=== PATIENT | male | born 1970 | race Caucasian/White ===

== ENCOUNTER → 2020-05-15 | Outpatient (CLI) | payer OTHER, SELFPAY ==
[2014-12-17 06:49] VITALS: BMI 23.6
[2020-05-15 10:37] LABS: Vitamin B12 570 pg/mL (211-911)
[2020-05-15 11:03] LABS: Ferritin 204 ng/mL (26-388); Iron 121 ug/dL (65-175)
== END | disposition home or self-care (01) ==
LOC: MFPLAB 09:15
PROVIDERS: PCP Family Medicine; Referring Provider Family Medicine; Visit Provider Family Medicine
DX: R71.8 Other abnormality of red blood cells (principal)
CPT/HCPCS: 36415; 82607; 82728; 82746; 83540

== ENCOUNTER → 2021-04-20 08:41 | Outpatient (CLI) | payer OTHER, SELFPAY ==
[2014-12-17 06:49] VITALS: BMI 23.6
[2021-04-20 10:32] LABS: PSA,Total - Annual Screen 1.01 ng/mL (0.00-4.00)
== END ==
PROVIDERS: PCP Family Medicine; Referring Provider Family Medicine; Visit Provider Family Medicine
DX: Z12.5 Encounter for screening for malignant neoplasm of prostate (principal)
CPT/HCPCS: 36415; 84153; G0103

== ENCOUNTER → 2022-04-23 | Outpatient (CLI) | payer OTHER, SELFPAY ==
[2022-04-23 08:51] LABS: PSA,Total - Annual Screen 0.93 ng/mL (0.00-4.00)
== END | disposition home or self-care (01) ==
PROVIDERS: PCP Family Medicine; Visit Provider Family Medicine
DX: Z12.5 Encounter for screening for malignant neoplasm of prostate (principal)
CPT/HCPCS: 36415; 84153; G0103

== ENCOUNTER → 2022-11-25 | Outpatient (CLI) | payer OTHER, SELFPAY ==
--- NOTE | 2022-11-25 10:35 | RAD_ITS ---
STUDY: X-RAY CHEST REASON FOR EXAM: Male, 52 years old. Two-week history of cough. TECHNIQUE: PA and lateral views of the chest. COMPARISON: None. FINDINGS: Hyperinflation. The lungs are clear. Scattered calcified granulomas. There is no demonstrated pleural abnormality. Normal size heart. Normal mediastinum and susan. Normal visualized pulmonary arteries. Normal visualized aortic arch and descending thoracic aorta. Normal visualized thoracic spine. Normal visualized ribs, clavicles, and shoulders. There is no demonstrated abnormality of the visualized soft tissue structures of the upper abdomen. RAD/Chest PA and Lateral IMPRESSION: Hyperinflation. No acute abnormality is seen. Electronically Signed: Dimas Duarte MD at 11:09 [facility] ,
== END | disposition home or self-care (01) ==
LOC: MTRAD 10:33
PROVIDERS: PCP Family Medicine; Referring Provider Physician Assistant; Visit Provider Physician Assistant
DX: R05.9 Cough, unspecified (principal)
CPT/HCPCS: 71046

== ENCOUNTER → 2023-04-25 | Outpatient (CLI) | payer OTHER, SELFPAY ==
[2023-04-25 09:15] LABS: PSA,Total - Annual Screen 1.06 ng/mL (0.00-4.00)
== END | disposition home or self-care (01) ==
LOC: LAB 07:37
PROVIDERS: PCP Family Medicine; Referring Provider Family Medicine; Visit Provider Family Medicine
DX: Z00.00 Encounter for general adult medical examination without abnormal findings (principal)
CPT/HCPCS: 36415; 84153; G0103

== ENCOUNTER → 2023-05-12 | Outpatient (CLI) | payer OTHER, SELFPAY ==
[2023-05-12 10:28] LABS: Erythrocyte Sedimentation Rate 6 mm/hr (0-20)
[2023-05-13 15:08] LABS: Deamidated Gliadin IgA 13 units (0-19); Deamidated Gliadin IgG 3 units (0-19); Endomysial Antibody IgA Negative (Negative); Immunoglobulin A 280 mg/dL (90-386); t-Transglutaminase IgA <2 U/mL (0-3)
[2023-05-15 17:06] LABS: Beef <0.10 kU/L (Class 0); Chocolate <0.10 kU/L (Class 0); Corn <0.10 kU/L (Class 0); Egg, Whole <0.10 kU/L (Class 0); Milk (Cow) <0.10 kU/L (Class 0); Peanut <0.10 kU/L (Class 0); Pork <0.10 kU/L (Class 0); Soybean <0.10 kU/L (Class 0); Wheat <0.10 kU/L (Class 0)
[2023-05-17 15:08] LABS: Pancreatic Elastase, Fecal 345 (>200)
== END | disposition home or self-care (01) ==
LOC: MFPLAB 09:16
PROVIDERS: PCP Family Medicine; Visit Provider Family Medicine
DX: R19.5 Other fecal abnormalities (principal)
CPT/HCPCS: 36415; 82653; 82784; 83516; 85652; 86003; 86005; 86255

== ENCOUNTER 2024-11-30 06:35 | Day surgery (SDC) | payer OTHER, SELFPAY ==
[2024-11-30] VITALS (8 sets, daily range): BP systolic 107–146; BP diastolic 73–90; PULSE 50–67; RESP 16; TEMP 36.4–37; O2SAT 96–100; BMI 24.0
--- NOTE | 2024-11-30 07:12 | PCM.PRE.AN2 ---
ASA Classification* ASA Classification ASA Classification: 2 Assessment & Plan Anesthesia* Anesthesia Assessment Anesthesia Assessment: Discussed sedation and/or anesthesia options, risks, benefits, and alternatives with patient/parents/legal guardian/POA. Questions invited. The patient/parents/legal guardian/POA seems to understand and agrees to proceed with anesthesia plan. Reviewed the physical assessment, medical history, allergy history and patient home medications list prior to surgery/procedure/anesthetic and documented any changes. Performed airway and anesthesia risk assessments. Anesthesia Type Anesthesia Type: MAC Anesthesia Focused Assessment* Temperature: 98.6 F Pulse Rate: 59 Blood Pressure: 146/90 Respiratory Rate: 16 Pulse Ox: 100 Airway Assessment Mouth opens: >3 cm Mallampati Score: II Focused Labs Anesthesia Preop lab: CBC WBC 4.7 K/mm3 (4.4-11.0) 05/03/24 08:09 05/03/24 RBC 4.79 M/mm3 (4.6-6.2) 05/03/24 08:09 05/03/24 Hgb 14.9 g/dL (13.0-16.5) 05/03/24 08:09 05/03/24 Hct 45.3 % (40-54) 05/03/24 08:09 05/03/24 Plt Count 280 K/mm3 (150-450) 05/03/24 08:09 05/03/24 CHEMISTRY Potassium 3.5 mmol/L (3.5-5.1) 05/03/24 08:09 05/03/24 Sodium 135 mmol/L (136-145) L 05/03/24 08:09 05/03/24 Phosphorus 2.0 mg/dL (2.5-4.9) L 04/25/23 07:41 04/25/23 BUN 17 mg/dL (7-18) 05/03/24 08:09 05/03/24 Creatinine 1.20 mg/dL (0.70-1.30) 05/03/24 08:09 05/03/24 Glucose 89 mg/dL (74-106) 05/03/24 08:09 05/03/24 TSH 0.37 uIU/mL (0.358-3.74) 10/16/13 14:05 10/16/13 COAG Pre-Assessment Diagnosis/Proposed Procedure Planned Operative Procedure(s): CSCOPE Anesthesia History 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 When Was Last Pacemaker Check QUESTION #4 FULL TEXT: You/Your Family Experience fever (hyperthermia) with Anesthesia Last Oral Intake Last Oral intake: Last Oral Intake NPO since 03:15 11/30/24 06:57 Meds taken in AM with sips of Yes 11/30/24 06:57 water? 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 Female Yes 11/29/24 09:36 HX of Motion Sickness Yes 11/29/24 09:36 HX of N/V After Surgery No 11/29/24 09:36 Non-Smoker Yes 11/29/24 09:36 Duration of Surgery greater No 11/29/24 09:36 than 60 minutes Number of Risk Factors 3 11/29/24 09:36 PONV Score Moderate Risk 11/29/24 09:36 Height & Weight Height & Weight: Anesthesia: Height & Weight Height 5 ft 11 in 11/30/24 06:57 Weight: 78 kg 11/30/24 06:57 Body Mass Index (BMI) 24.0 11/30/24 06:57 Respiratory Assessment Respiratory Assessment - centrifugal station operator: Respiratory Tract Infection Hx - centrifugal station operator Hx Respiratory Tract Infection Yes: 09/2024 - COVID 11/29/24 09:36 STOP Sleep Apnea STOP Sleep Apnea - centrifugal station operator: STOP Sleep Apnea - centrifugal station operator Hx Hypertension No 11/29/24 09:36 Hx Sleep Apnea No 11/29/24 09:36 CPAP No 12/11/14 10:08 BIPAP No 12/11/14 10:08 Do you snore loudly (louder No 11/29/24 09:36 than talking or can be heard Do you often feel tired/ No 11/29/24 09:36 fatigued/ sleepy during daytime? Has anyone observed you stop No 11/29/24 09:36 breathing during sleep? STOP Results Negative 11/29/24 09:36 QUESTION #5 FULL TEXT : Do you snore loudly (louder than talking or can be heard through closed doors)? 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 Specify any problems Hx of Preganancy in last 3 N/A 11/29/24 09:36 Months Nurse Filling Out Transfusion NBUCHER 11/29/24 09:36 & Questions: Date: 11/29/24 11/29/24 09:36 Time: 09:38 11/29/24 09:36 Patient unable to answer at this time (ie. 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: /Reproductive Hx- centrifugal station operator Hx Now No 11/29/24 09:36 Gestational Age (in weeks): EDC: Hx Hx Para Hx Section SAB No 11/29/24 09:36 [facility] Medical History Wears glasses Essential tremor Ocular migraine Acute bronchitis, unspecified Cough Chronic neck and back pain Shoulder pain Home Medications ?Medication ?Instructions ?Recorded ?Last Taken ?Type fluticasone propionate 50 1 spray DAILY 12/11/14 11/29/24 History mcg/actuation nasal spray,suspension multivitamin 1 tab PO QDAY 10/03/24 11/29/24 History propranolol 10 mg tablet 10 mg PO BID 10/03/24 11/30/24 History Allergy/AdvReac Type Severity Reaction Status Date / Time No Known Allergies Allergy Verified 11/29/24 09:35 Family History Father Bladder cancer Hypertension Melanoma Grandfather Prostate cancer Surgical History Hx of sinus surgery Hx of colonoscopy Social History household members: spouse number of children: 2 current occupational status: employed Smoking Status: Never smoker alcohol intake: never substance use type: does not use what type of physical activity do you participate in: running and bicycling Review of Systems (Anesthesia) ROS Narrative System reviewed and no additional complaints, except as documented.
--- NOTE | 2024-11-30 07:20 | H&P.OPEN ---
HPI - General HPI Narrative SUNNI JOSEPH, is a 54 M who presents for screening colonoscopy. His last colonoscopy was 10 years ago. He denies abdominal pain. He does have occasional blood in his stools which she attributes to hemorrhoids. No family history of colon cancer. [facility] Medical History Wears glasses Essential tremor Ocular migraine Acute bronchitis, unspecified Cough Chronic neck and back pain Shoulder pain Home Medications ?Medication ?Instructions ?Recorded ?Last Taken ?Type fluticasone propionate 50 1 spray DAILY 12/11/14 11/29/24 History mcg/actuation nasal spray,suspension multivitamin 1 tab PO QDAY 10/03/24 11/29/24 History propranolol 10 mg tablet 10 mg PO BID 10/03/24 11/30/24 History Allergy/AdvReac Type Severity Reaction Status Date / Time No Known Allergies Allergy Verified 11/29/24 09:35 Family History Father Bladder cancer Hypertension Melanoma Grandfather Prostate cancer Surgical History Hx of sinus surgery Hx of colonoscopy Social History household members: spouse number of children: 2 current occupational status: employed Smoking Status: Never smoker alcohol intake: never substance use type: does not use what type of physical activity do you participate in: running and bicycling Past Medical/Surgical History Planned Operation Planned Operative Procedure(s): CSCOPE S.O.S: No Previous Hospitalizations/Surgeries HX Hospitalizations: Yes HX of Surgeries: SINUS SURGERY X2 TIBIA RIGHT CYST REMOVED CHILD COLONOSCOPY Any Problems With Anesthesia: Yes (NAUSEA VOMITING) You/Your Family Experience Fever (Hyperthermia) With Anes: No Cholinesterase deficiency: No Cardiovascular Hx Chest Pain within Last 2 months: No Hx of Irregular Heartbeat and/or Afib: No Hx Heart Attack: No Hx Congestive Heart Failure: No Hx Rheumatic Fever: No Hx Hypertension: No Hx Internal Defibrillator: No Hx Pacemaker: No Hx Cardiac Catheterization: No Hx Cardiac Surgery/Stents/Etc.: No Hx Stress Test: No Hx Pain in Legs when Walking/Leg Cramps: No Respiratory Chronic Cough: No HX of Shortness of Breath: No Hoarseness: No Hx Chronic Obstructive Pulmonary Disease (COPD): No Hx Asthma: No Hx Emphysema: No Hx Sleep Apnea: No CPAP: No BIPAP: No Hx Respiratory Tract Infection/Cold (presently): No Do You Snore Loudly (louder than talking or can be heard): No Do You Often Feel Tired/ Fatigued/ Sleepy Dring Daytime?: No Has Anyone Observed You Stop Breathing During Sleep?: No Result (for STOP score): Negative Hx Smoking: No Smoking Status: Never smoker Gastrointestinal Controlled With Meds: No Hx Gastrointestinal Disorders: Yes (RECTAL BLEEDING) Hx Gastrointestinal Bleed: No Hx Ulcer: No Hx Hiatal Hernia: No Difficulty Chewing/Swallowing: No Special diet followed at home: No Hx Unplanned Weight Loss of 20#: No HX Unplanned Weight Gain of 20#: No Neurological Hx Seizures: No HX Syncope/Blackout Spells/Unconsciousness: No Hx Transient Ischemic Attacks (TIA): No Hx Multiple Sclerosis: No Hx Parkinson's Disease: No (HAND TREMORS WITH STRESS) Hx Head/Neck Injury: No Hx Headaches: No Hx Back Injury/Pain: No Recent Onset of Speech Difficulty: No Restless Legs: No Does patient have nerve stimulator: No Blood Disorder Hx Leukemia: No Bleeding Tendencies: No Hx Deep Vein Thrombosis: No Hx High Cholesterol: No Blood Transmitted Disease: No Hx Hepatitis: No Hx Cirrhosis: No Hx Anemia: No Hx Blood Disorders: No Reproduction : No Genitourinary Hx Renal Disease: No Musculoskeletal Hx Arthritis: No Hx Rheumatoid Arthritis: No Hx Gout: No Recent Onset of an Orthopedic Problem: No Endocrine Hx Diabetes: No Thyroid Disease: No Hx Steroid Therapy: No Psycho/Social Hx Substance Use: No Hx Alcohol Use: No Hx Anxiety: No Hx Depression: No Mental Illness: No Hx Dementia: No Miscellaneous Hx Cancer: No Recent Exposure to Contagious Disease: No Hx of C-Diff: Yes (15-20 YRS AGO FROM ANTIBIOTIC) Any Loose Teeth: No Allergies No Known Allergies Allergy (Verified 11/29/24 09:35) Discharge Is Pt Admitted From a Skilled Nursing, or a Prison: No After D/C, Where Do you Plan to Go: Return Home Vital Signs Vital Signs Vital Signs: 11/30/24 06:57 11/30/24 06:57 11/30/24 07:12 Temperature 98.6 F 98.6 F Temperature Source Temporal Pulse Rate 59 L 59 L Respiratory Rate 16 16 Respiratory Pattern Normal Blood Pressure 146/90 H 146/90 H Blood Pressure Mean 108 Blood Pressure Source Monitor Blood Pressure Position Semi-Fowlers Blood Pressure Location Right Arm Pulse Ox 100 100 Oxygen Delivery Method Room Air Weight Weight: 171 lb 15.369 oz Body Mass Index (BMI) 24.0 Physical Exam Const alert and oriented x3 HEENT normocephalic Eyes PERRL Resp normal respiratory effort and normal air movement Cardio regular rate and regular rhythm GI soft to palpation, non-tender and non-distended Extremity normal to inspection Assessment & Plan Assessment/Plan (1) Encounter for screening for malignant neoplasm of colon: PLAN: I explained endoscopy in detail to the patient. I explained the risks including but not limited to stroke or heart attack with anesthesia, perforation of the GI tract, bleeding, infection. I explained that any of these could necessitate further emergency surgery. The patient understands and all questions were answered sufficiently. The patient wishes to proceed with procedure. Robbin Clayton MD Pager: [facility] [address] [place] [address] [address] [place] [address] Office: Surgery Risks - Colonoscopy Risks Include but are not Limited To: Risks include but are not limited to: Bleeding, perforation requiring further surgery, inability to complete colonoscopy requiring barium enema.
--- NOTE | 2024-11-30 08:18 | OP.COLON_ITS ---
Patient Name: Fox Arredondo Procedure Date: 11/30/2024 7:54 AM Date of : 1970 Age: 54 Procedure: Colonoscopy Indications: Screening for colorectal malignant neoplasm Providers: Robbin Clayton MD Referring MD: Jay Harris Medicines: Propofol per Anesthesia Patient Profile: This is a 54 year old male. Refer to note in patient chart for documentation of history and physical. Last Colonoscopy: 10 years ago. Complications: No immediate complications. Procedure: Pre-Anesthesia Assessment: - Prior to the procedure, a History and Physical was performed, and patient medications and allergies were reviewed. The patient's tolerance of previous anesthesia was also reviewed. The risks and benefits of the procedure and the sedation options and risks were discussed with the patient. All questions were answered, and informed consent was obtained. Prior Anticoagulants: The patient has taken no anticoagulant or antiplatelet agents. After reviewing the risks and benefits, the patient was deemed in satisfactory condition to undergo the procedure. After I obtained informed consent, the scope was passed under direct vision. Throughout the procedure, the patient's blood pressure, pulse, and oxygen saturations were monitored continuously. The Colonoscope was introduced through the anus and advanced to the cecum, identified by appendiceal orifice and ileocecal valve. The colonoscopy was performed without difficulty. The patient tolerated the procedure well. The quality of the bowel preparation was good. The ileocecal valve, appendiceal orifice, and rectum were photographed. Scope In: 8:04:36 AM Scope Withdrawal Time 0 hours 6 minutes 15 seconds Scope Out: 8:15:13 AM Total Procedure Duration Time 0 hours 10 minutes 37 seconds Findings: The entire examined colon appeared normal on direct and retroflexion views. Impression: - No specimens collected. Recommendation: - Discharge patient to home. - Resume previous diet. - Continue present medications. - Repeat colonoscopy in 10 years for screening purposes. Procedure Code(s): --- Professional --- 06799, Colonoscopy, flexible; diagnostic, including collection of specimen(s) by brushing or washing, when performed (separate procedure) Diagnosis Code(s): --- Professional --- Z12.11, Encounter for screening for malignant neoplasm of colon CPT copyright 2021 [employer]. All rights reserved. The codes documented in this report are preliminary and upon epic [facility] review may be revised to meet current compliance requirements. Robbin Clayton MD 11/30/2024 8:18:32 AM This report has been signed electronically. Number of Addenda: 0 Note Initiated On: 11/30/2024 7:54 AM
--- NOTE | 2024-11-30 08:19 | OP.CCLET_ITS ---
11/30/2024 Jay Harris [address] [place] [address] Re : Colonoscopy procedure for Fox Pozoabram Dear Dr. Harris This procedure was performed on Saturday, November 30, 2024. My impressions and recommendations are as follows: Impressions : - No specimens collected. Recommendations : - Discharge patient to home. - Resume previous diet. - Continue present medications. - Repeat colonoscopy in 10 years for screening purposes. My findings are described in the full procedure note, which is enclosed. If I can be of further assistance, please feel free to contact me at Doctor phone number(s): , Work: . Sincerely, Robbin Clayton MD 11/30/2024 8:18:32 AM This report has been signed electronically.
--- NOTE | 2024-11-30 08:24 | PCM.POST.ANE ---
Anesthesia: Postop Eval I Current Vital Signs Temperature: 97.6 F Pulse Rate: 67 Blood Pressure: 114/87 Respiratory Rate: 16 Pulse Ox: 98 Oxygen Delivery Method: Room Air Assessment Airway patent: Yes Spontaneous unlabored respirations: Yes Mental status: Awake and Calm nausea: No Vomiting: No Anesthesia Complication: No Fluid Hydration Crystalloid volume administer (ml): 40 Total IV fluid infused: 40 Progress Note Anesthesia document: Postop Eval 1 completed: Yes
--- NOTE | 2024-11-30 09:30 | PCM.POSTANE2 ---
Anesthesia Postop Eval I Sum Postop Eval Completion status Anesthesia document: Postop Eval 1 completed: Yes Anesthesia Postop Eval I Summary Anesthesia Postop Eval I Summary: Anesthesia Postop Eval I: Assessment Summary Airway patent Yes 11/30/24 08:24 [email or web address] Spontaneous unlabored Yes 11/30/24 08:24 [email or web address] respirations Mental status Awake,Calm 11/30/24 08:24 [email or web address] nausea No 11/30/24 08:24 [email or web address] Vomiting No 11/30/24 08:24 [email or web address] Anesthesia Postop Eval I: Fluid Summary Crystalloid volume administer 40 11/30/24 08:24 [email or web address] (ml) Colloids volume administered ( ml) Blood Product volume administered (ml) Total IV fluid infused 40 11/30/24 08:24 [email or web address] Anesthesia Postop Eval I: Summary Notes Anesthesia Complication No 11/30/24 08:24 [email or web address] Anesthesia Complication Comment: Post-operative progress note Anesthesia: Postop Eval II Evaluation Mental status: Awake Pain Level: 0 nausea: No Vomiting: No
== END 2024-11-30 09:00 | disposition home or self-care (01) ==
LOC: EN 06:37 → AC 06:38
PROVIDERS: PCP Family Medicine; Referring Provider Family Medicine; Visit Provider Surgery
PROC: 0DJD8ZZ Inspection of Lower Intestinal Tract, Via Natural or Artificial Opening Endoscopic (ICD-10-PCS; CPT 45378; principal; 2024-11-30 07:25)
DX: Z12.11 Encounter for screening for malignant neoplasm of colon (principal)
CPT/HCPCS: 45378; A4216; J2405

== ENCOUNTER → 2025-05-01 | Outpatient (CLI) | payer OTHER, SELFPAY ==
[2025-05-01 20:20] LABS: PSA,Total - Annual Screen 1.11 ng/mL (0.02-4.00)
== END | disposition home or self-care (01) ==
LOC: MTLAB 08:58
PROVIDERS: PCP Family Medicine; Referring Provider Family Medicine; Visit Provider Family Medicine
DX: Z12.5 Encounter for screening for malignant neoplasm of prostate (principal)
CPT/HCPCS: 36415; 84153; G0103